=== PATIENT | female | born 1985 | race Caucasian/White ===

== ENCOUNTER 2020-08-26 13:04 | Emergency (ER) | payer OTHER ==
[~2020-08-26] VITALS: Ht 175.3 cm; Wt 71.6 kg
[2020-08-26 13:10] VITALS: BP 147/85
== END 2020-08-26 17:22 | disposition home or self-care (01) ==
LOC: ED 16:50
DX: H57.04 Mydriasis (principal); H53.8 Other visual disturbances; R51.9 Headache, unspecified
CPT/HCPCS: 70450; 99284